=== PATIENT | male | born 1960 | race Caucasian/White ===

== ENCOUNTER 2017-09-11 08:49 | Day surgery (SDC) | payer BC ==
[2017-09-03 16:37] VITALS: BMI 32.3
[~2017-09-11 08:49] MED LIST: DEXAMETHASONE SOD PHOSPHATE 10 MG/ML 1 ML VIAL IV ONE; HEPARIN SODIUM,PORCINE 5,000 UNIT/ML 1 ML VIAL SQ ONE; HYDROmorphone 0.5 MG/0.5 ML SYRINGE IVP PRN; LACTATED RINGERS 1,000 ML IV SCH; MIDAZOLAM 2 MG/2 ML VIAL IV PRN; ONDANSETRON 4 MG/2 ML VIAL IVP ONE; SCOPOLAMINE 1.5MG/72HR PATCH TRANSDERM ONE; ceFAZolin IN SWFI 2 GM/20 ML SYRINGE IVP ONE
--- NOTE | 2017-09-11 09:11 | P.GSHP ---
History of Present Illness H&P Date: 09/11/17 Chief Complaint: Symptomatic cholelithiasis 56 yrs old male S/P Rubin procedure for perforated sigmoid diverticulitis. Doing well. OStomy functioning well. Incision has healed. He presents to discuss about incidental findings of gallstones ROS Additionally reports: Constitutional: No fever, chills or rigors. No weight loss or loss of appetite. HEENT: No difficulty with hearing, vision and swallowing. Lymphatic: No axillary, inguinal and cervical swellings. Endocrine: No thyroid disorders. Denies history of diabetes. Respiratory: No chest pain, shortness of breath, and cough. No hemoptysis. Cardiovascular: No palpitations, irregular HR Gastrointestinal: Denies heartburn. No change in bowel habits. No nausea or vomiting. Genitourinary: No increase in urinary frequency or urgency. No hematuria. Musculoskeletal: No back pain, joint stiffness or pain. Neurologic: No history of seizure disorder and headaches. Psychiatric: Denies depression or anxiety . No suicidal ideation. Hematologic: Denies any abnormal mucosal bleeding or easy bruising. Physical Exam Patient is a 56-year-old male. Constitutional: General Appearance: healthy-appearing, well-nourished, and well- developed. Level of Distress: NAD. Ambulation: ambulating normally. Psychiatric: Insight: good judgement. Mental Status: normal mood and affect and active and alert. Orientation: to time, place, and person. Memory: recent memory normal and remote memory normal. Head: Head: normocephalic and atraumatic. Cardiovascular: Heart Auscultation: normal S1 and S2 and RRR. Abdomen: Bowel Sounds: normal. Inspection and Palpation: no tenderness, guarding , masses, or rebound tenderness and soft and non-distended; Ostomy is pink and productive. Hernia: none palpable. Musculoskeletal:: Motor Strength and Tone: normal and normal tone. Joints, Bones , and Muscles: normal movement of all extremities. Extremities: no cyanosis or edema. Neurologic: Gait and Station: normal gait and station. Cranial Nerves: grossly intact. Skin: Inspection and palpation: no rash or lesions. Assessment / Plan 1. Cholelithiasis 2. Informed consent obtained from the patient after explaining the risks, benefits and potential complications of laparoscopic cholecystectomy including bleeding, infection, DVT , inadvertent bile duct injury and possibility of converting to open 3. Patient demonstrated understanding of the procedure and agreed to undergo lap endy possible open 4. Expected post op course discussed including no heavy lifting >10 lbs for 6 weeks post surgery 5. Colostomy reversal will be performed at a different date. Preop orders: 1. Ancef 2 gm IVPB x1 2. Bilateral lower extremity SCDs 3. Heparin 5000 Units SQ injection x1 1. Diverticulitis of sigmoid colon K57.32: Diverticulitis of large intestine without perforation or abscess without bleeding 2. Essential hypertension I10: Essential (primary) hypertension HIGH BLOOD PRESSURE: CARE INSTRUCTIONS LEARNING ABOUT HIGH BLOOD PRESSURE 3. Generalized anxiety disorder F41.1: Generalized anxiety disorder ANXIETY DISORDER: CARE INSTRUCTIONS 4. Body mass index 30+ - obesity Z68.39: Body mass index (BMI) 39.0-39.9, adult 5. Cholelithiasis without obstruction K80.20: Calculus of gallbladder without cholecystitis without obstruction Past Medical History Past Medical History: Hyperlipidemia, Hypertension, Sleep Apnea/CPAP/BIPAP Additional Past Medical History / Comment(s): gallstones, hs migraines, colostomy, IBS, diverticulitis, History of Any Multi-Drug Resistant Organisms: None Reported Past Surgical History: Bowel Resection, Hernia Repair Additional Past Surgical History / Comment(s): bowel resection with colostomy for "ruptured instestine", Past Anesthesia/Blood Transfusion Reactions: No Reported Reaction Smoking Status: Former smoker - Past Family History Father Family Medical History: Congestive Heart Failure (CHF) Mother Family Medical History: Cancer Medications and Allergies Home Medications Medication Instructions Recorded Confirmed Type ALPRAZolam [Xanax] 0.25 mg PO TID PRN 06/20/17 09/11/17 History Aspirin [Adult Low Dose Aspirin EC] 81 mg PO DAILY 06/20/17 09/03/17 History Citalopram Hydrobromide [CeleXA] 40 mg PO DAILY 06/20/17 09/03/17 History Ezetimibe/Simvastatin [Vytorin 1 tab PO DAILY 06/20/17 09/03/17 History 10-40 mg Tablet] Fenofibrate Nanocrystallized 145 mg PO DAILY 06/20/17 09/03/17 History [Tricor] amLODIPine [Norvasc] 5 mg PO DAILY #30 tab 06/26/17 09/03/17 Rx Allergies Allergy/AdvReac Type Severity Reaction Status Date / Time No Known Allergies Allergy Verified 09/03/17 11:33 Assessment and Plan (1) Cholelithiasis Current Visit: No Status: Acute Code(s): K80.20 - CALCULUS OF GALLBLADDER W/ O CHOLECYSTITIS W/O OBSTRUCTION SNOMED Code(s): 222783650 (2) Hypertension Current Visit: No Status: Acute Code(s): I10 - ESSENTIAL (PRIMARY) HYPERTENSION SNOMED Code(s): 42730153 (3) Obesity (BMI 30.0-34.9) Current Visit: No Status: Acute Code(s): E66.9 - OBESITY, UNSPECIFIED SNOMED Code(s): 270466598 (4) Sleep apnea Current Visit: No Status: Acute Code(s): G47.30 - SLEEP APNEA, UNSPECIFIED SNOMED Code(s): 92792913
[2017-09-11] MEDS ORDERED: ROCURONIUM BROMIDE 10 MG/ML 10 ML VIAL IV ONE (09:43)
[2017-09-11] MEDS ORDERED: GLYCOPYRROLATE 0.2 MG/ML 2 ML VIAL ONE (09:43)
[2017-09-11] MEDS ORDERED: NEOSTIGMINE 1 MG/ML 10 ML VIAL ONE (09:43)
[2017-09-11] MEDS ORDERED: LIDOCAINE 1% INJ 10MG/ML (20 ML MDV) ONE (09:43)
[2017-09-11] MEDS ORDERED: SUCCINYLCHOLINE CHLORIDE 100 MG/5 ML SYR IV ONE (09:43)
[2017-09-11] MEDS ORDERED: PROPOFOL 10 MG/ML 20 ML VIAL IV ONE (09:43)
[2017-09-11] MEDS ORDERED: LABETALOL 5 MG/ML VIAL MDV ONE (09:43)
[2017-09-11] MEDS ORDERED: fentaNYL (PF) 50 MCG/ML 2 ML AMP ONE (09:43)
[2017-09-11] MEDS ORDERED: MIDAZOLAM 2 MG/2 ML VIAL ONE (09:43)
[2017-09-11] MEDS ORDERED: KETOROLAC 30 MG/ML 1 ML VIAL ONE (09:43)
[2017-09-11] MEDS ORDERED: hydrALAZINE HCL 20 MG/ML 1 ML VIAL ONE (09:43)
[2017-09-11] MEDS ORDERED: BUPIVACAINE (PF) 0.25% 30 ML VIAL SQ ONE ×2 (10:12→10:46)
[2017-09-11] MEDS ORDERED: LACTATED RINGERS 1,000 ML IV ONE (10:54)
[2017-09-11 11:11] VITALS: TEMP 97.2
[2017-09-11 11:27] VITALS: RESP 18
[2017-09-11 12:24] VITALS: BP 147/72; PULSE 69
--- NOTE | 2017-09-11 13:34 | P.OP ---
Date of Procedure: 09/11/17 Preoperative Diagnosis: Calculus cholecystitis Status post Romaine procedure for perforated sigmoid diverticulitis Prior history of ventral hernia repair Postoperative Diagnosis: Same Procedure(s) Performed: Laparoscopic cholecystectomy Anesthesia: NICHOLASA Toll Line Mechanic #1: Anat Laird Estimated Blood Loss (ml): 5 Pathology: other Condition: stable Disposition: PACU Indications for Procedure: 56 years old male underwent Romaine procedure by Dr. Reyes for perforated sigmoid diverticulitis. He also has gallstones and presents today for laparoscopic cholecystectomy Description of Procedure: The patient was brought to the operating room and placed in supine position with both arms out. General anesthesia with endotracheal intubation was performed as per anesthesia team. Chlorhexidine was used to prep the abdomen followed by application of sterile drapes. A timeout was performed to verify correct patient and correct procedure. Patient was confirmed to receive perioperative IV antibiotics , heparin 5000 units subcutaneous injection and bilateral SCDs were placed. The ostomy bag was removed and area around it was prepped. A new ostomy appliance was applied and chloraprep was used to prep the abdomen wall as well as ostomy bag A 5 mm skin incision was made below the left costal margin at the anterior axillary line. A Veress needle was inserted and pneumoperitoneum was established to a pressure of 15 mmHg. A 5 mm Optiview trocar was loaded on a 5 mm 30 laparoscope and the peritoneal cavity was entered under direct vision using the Optiview technique. Additional 5 mm trocar was placed in the supraumbilical location and two 5 mm trocars along the right subcostal margin. The left 5 mm trocar was upsized to 10mm. The patient was placed in reverse Trendelenburg with right side up. Small bowel adhesions along the lower midline. The ostomy is identified in the left lower abdomen. The fundus of the gallbladder was grasped with an atraumatic grasper and was retracted over the dome of the liver. The infundibulum was grasped with an atraumatic grasper and retracted towards the pelvis to expose the Calot's triangle. Lateral and medial peritoneal attachment of the gallbladder bladder was dissected. Circumferential dissection was carried out around the cystic artery and the cystic duct to obtain adequate length for clip application. All the surrounding fibrofatty tissue were removed. Critical view was obtained with cystic duct and cystic artery as the only two structures entering the gallbladder. Two clips were applied on the patient's side and one on the specimen side on the cystic duct first followed by the cystic artery. Endoshears were used to divide the cystic duct and the cystic artery. The gallbladder was taken off the liver bed using a L-hook. It was placed in an endocatch specimen bag and removed through the 10mm port. The gallbladder was passed off as a specimen. The abdominal cavity was inspected. The clips on the cystic duct and cystic artery stump were intact and no bleeding noted from the liver bed. All the trocar sites were examined and no evidence of bleeding. The 10mm port site was closed with two transfascial sutures of 0 Vicryl using a Lavelle Ander device. The pneumoperitoneum was evacuated and all the trocars were removed. Local anesthetic was infiltrated along the trocar sites and incisions were closed using 4-0 Monocryl followed by application of Dermabond skin glue. The sponge, instrument and needle count were correct x2. Patient was extubated and taken to post anesthesia care unit in stable condition.
== END 2017-09-11 12:46 | disposition home or self-care (01) ==
LOC: OR 08:49
PROVIDERS: ATTEND Surgery
DX: K81.1 Chronic cholecystitis (principal); K66.0 Peritoneal adhesions (postprocedural) (postinfection); F41.1 Generalized anxiety disorder; I10 Essential (primary) hypertension; E78.5 Hyperlipidemia, unspecified; K58.9 Irritable bowel syndrome, unspecified; E66.9 Obesity, unspecified; Z68.39 Body mass index [BMI] 39.0-39.9, adult; G47.33 Obstructive sleep apnea (adult) (pediatric); Z87.19 Personal history of other diseases of the digestive system; Z93.3 Colostomy status; Z98.890 Other specified postprocedural states; Z79.1 Long term (current) use of non-steroidal anti-inflammatories (NSAID); Z79.82 Long term (current) use of aspirin; Z79.899 Other long term (current) drug therapy; Z87.891 Personal history of nicotine dependence
CPT/HCPCS: 88304; 47562; J2250; J0360; J1644; J1100; J2710; J0690; J2405; J2001; J3010; J1885; J0330; J2704

== ENCOUNTER 2023-11-02 04:13 | Emergency (ER) | payer BC ==
--- NOTE | 2023-11-02 04:47 | ED ---
General Adult HPI - General Source: patient Mode of arrival: ambulatory Limitations: no limitations <Abdiel Silva - Last Filed: 11/02/23 06:45> <Artie Landry - Last Filed: 11/02/23 08:13> - General Chief complaint: Abdominal Pain Stated complaint: abd pain-possible kidney stone Time Seen by Provider: 11/02/23 04:22 - History of Present Illness Initial comments: Dictation was produced using mokono dictation software. please excuse any grammatical, word or spelling errors. Chief Complaint: 63-year-old male with groin pain History of Present Illness: Patient 63-year-old male presents to the emergency department with groin pain. States that he was at [facility] emergency department 4 days ago diagnosed with a 10 mm kidney stone. Patient has been having tolerable symptoms at home until last night when he had a sharp pain in his right groin. States that the pain eased up after he took some tramadol. Patient is any fever. Denies any associated nausea. The ROS documented in this emergency department record has been reviewed and confirmed by me. Those systems with pertinent positive or negative responses have been documented in the HPI. All other systems are other negative and/or noncontributory. (Abdiel Silva) - Related Data Home Medications Medication Instructions Recorded Confirmed ALPRAZolam [Xanax] 0.25 mg PO TID PRN 06/20/17 09/11/17 Aspirin [Adult Low Dose Aspirin EC] 81 mg PO DAILY 06/20/17 09/03/17 Citalopram Hydrobromide [CeleXA] 40 mg PO DAILY 06/20/17 09/03/17 Ezetimibe/Simvastatin [Vytorin 1 tab PO DAILY 06/20/17 09/03/17 10-40 mg Tablet] Fenofibrate Nanocrystallized 145 mg PO DAILY 06/20/17 09/03/17 [Tricor] Previous Rx's Medication Instructions Recorded amLODIPine [Norvasc] 5 mg PO DAILY #30 tab 06/26/17 Docusate [Colace] 100 mg PO BID #30 capsule 09/11/17 Hydrocodone/Acetaminophen [[place] 1 each PO Q6HR PRN #10 tab 09/11/17 5-325] HYDROcodone/APAP 5-325MG [[place] 1 tab PO Q6HR PRN #12 tab 11/02/23 5-325] Ibuprofen [Motrin] 600 mg PO Q8HR PRN #24 tab 11/02/23 Tamsulosin [Flomax] 0.4 mg PO DAILY #7 cap 11/02/23 Allergies Allergy/AdvReac Type Severity Reaction Status Date / Time No Known Allergies Allergy Verified 09/03/17 11:33 Review of Systems ROS Other: All systems not noted in ROS Statement are negative. <Abdiel Silva - Last Filed: 11/02/23 06:45> ROS Other: All systems not noted in ROS Statement are negative. <Artie Landry - Last Filed: 11/02/23 08:13> ROS Statement: Those systems with pertinent positive or pertinent negative responses have been documented in the HPI. Past Medical History Past Medical History: Hyperlipidemia, Hypertension, Sleep Apnea/CPAP/BIPAP Additional Past Medical History / Comment(s): gallstones, hs migraines, colostomy, IBS, diverticulitis, History of Any Multi-Drug Resistant Organisms: None Reported Past Surgical History: Bowel Resection, Hernia Repair Additional Past Surgical History / Comment(s): bowel resection with colostomy for "ruptured instestine", Past Anesthesia/Blood Transfusion Reactions: No Reported Reaction Past Psychological History: Anxiety Past Alcohol Use History: None Reported Past Drug Use History: None Reported - Past Family History Father Family Medical History: Congestive Heart Failure (CHF) Mother Family Medical History: Cancer <Abdiel Silva - Last Filed: 11/02/23 06:45> General Exam Limitations: no limitations <Abdiel Silva - Last Filed: 11/02/23 06:45> - General Exam Comments Initial Comments: PHYSICAL EXAM: General Impression: Alert and oriented x3, not in acute distress HEENT: Normocephalic atraumatic, extra-ocular movements intact, pupils equal and reactive to light bilaterally, mucous membranes moist. Cardiovascular: Heart regular rate and rhythm Chest: Able to complete full sentences, no retractions, no tachypnea Abdomen: abdomen soft, non-tender, non-distended, no organomegaly Musculoskeletal: Pulses present and equal in all extremities, no peripheral edema Motor: no focal deficits noted Neurological: CN II-XII grossly intact, no focal motor or sensory deficits noted Skin: Intact with no visualized rashes Psych: Normal affect and mood (Abdiel Silva) Course Vital Signs 11/02/23 11/02/23 04:16 08:00 Temperature 98.2 F 97.4 F L Pulse Rate 78 64 Respiratory 20 16 Rate Blood Pressure 162/75 124/78 O2 Sat by Pulse 95 96 Oximetry Medical Decision Making - Lab Data Result diagrams: 11/02/23 04:30 11/02/23 04:30 <Abdiel Silva - Last Filed: 11/02/23 06:45> - Lab Data Result diagrams: 11/02/23 04:30 11/02/23 04:30 <Artie Landry - Last Filed: 11/02/23 08:13> - Medical Decision Making Was pt. sent in by a medical professional or institution (, PA, STREETCAR STARTER, urgent care, hospital, or care home...) When possible be specific @ -No Did you speak to anyone other than the patient for history (EMS, parent, family, police, friend...)? What history was obtained from this source @ -No Did you review nursing and triage notes (agree or disagree)? Why? @ -I reviewed and agree with nursing and triage notes Were old charts reviewed (outside hosp., previous admission, EMS record, old EKG, old radiological studies, urgent care reports/EKG's, care home records)? Report findings @ -No old charts were reviewed Differential Diagnosis (chest pain, altered mental status, abdominal pain women, abdominal pain men, vaginal bleeding, musculoskeletal, weakness, fever, dyspne a, syncope, headache, dizziness, GI bleed, back pain, seizure, CVA, palpatations, mental health)? @ -Differential Abdominal Pain Men: Appendicitis, cholecystitis, diverticulosis, ischemic bowel, pancreatitis, hepatitis, UTI, gastroenteritis, AAA, incarcerated hernia, bowel obstruction, constipation, inflammatory bowel, hepatitis, peptic ulcer disease, splenic infarction, perforated viscus, testicular torsion, this is not meant to be an all-inclusive list EKG interpreted by me (3pts min.). @ -None done X-rays interpreted by me (1pt min.). @ -None done CT interpreted by me (1pt min.). @ -None done U/S interpreted by me (1pt. min.). @ - What testing was considered but not performed or refused? (CT, X-rays, U/S, labs)? Why? @ -None What meds were considered but not given or refused? Why? @ -None Did you discuss the management of the patient with other professionals (professionals i.e. DrAna Paula, PA, STREETCAR STARTER, lab, RT, psych nurse, social group worker, dispatcher relay, teacher, air intelligence officer, rn field case manager)? Give summary @ -No Was smoking cessation discussed for >3mins.? @ -No Was critical care preformed (if so, how long)? @ -No Were there social determinants of health that impacted care today? How? ( Homelessness, low income, unemployed, alcoholism, drug addiction, transportation, low edu. Level, literacy, decrease access to med. care, custodial, rehab)? @ -No Was there de-escalation of care discussed even if they declined (Discuss DNR or withdrawal of care, Hospice)? DNR status @ -No What co-morbidities impacted this encounter? (DM, HTN, Smoking, COPD, CAD, Cancer, CVA, ARF, Chemo, Hep., AIDS, mental health diagnosis, sleep apnea, morbid obesity)? @ -None Was patient admitted / discharged? Hospital course, mention meds given and route, prescriptions, significant lab abnormalities, going to OR and other pertinent info. @ -63-year-old male with alleged head symptomatic nephrolithiasis. States that he was diagnosed with this 4 days ago after being symptomatic for approximately 4 days. Vital signs stable. Patient well-appearing at the bedside. Patient after several minutes did request pain medications. X-ray inconclusive on possible stone in the right urinary system. Pending ultrasound. Labs are unremarkable. Patient care signed out to Dr. Landry at 7:00 AM Undiagnosed new problem with uncertain prognosis? @ -No Drug Therapy requiring intensive monitoring for toxicity (Heparin, Nitro, Insulin, Cardizem)? @ -No Were any procedures done? @ -No Diagnosis/symptom? Acute, or Chronic, or Acute on Chronic? Uncomplicated (without systemic symptoms) or Complicated (systemic symptoms)? @ -Symptomatic nephrolithiasis (Abdiel Silva) I did discuss the case with the physician covering at [facility] who states that this was a 12 meters stone in the proximal right ureter. X-ray and ultrasound had been ordered by the previous physician with ultrasound negative for hydronephrosis, there is a jet present on the right. Patient unlikely to pass the stone without urology intervention. He is reevaluated and resting comfortably. He is stable for discharge at this time with urology follow-up. (Artie Landry) - Lab Data Lab Results 11/02/23 11/02/23 11/02/23 Range/Units 04:30 04:30 04:30 WBC 6.6 (3.8-10.6) k/uL RBC 4.66 (4.30-5.90) m/uL Hgb 14.8 (13.0-17.5) gm/dL Hct 43.3 (39.0-53.0) % MCV 92.8 (80.0-100.0) fL MCH 31.9 (25.0-35.0) pg MCHC 34.3 (31.0-37.0) g/dL RDW 13.0 (11.5-15.5) % Plt Count 219 (150-450) k/uL MPV 8.4 Neutrophils % 67 % Lymphocytes % 23 % Monocytes % 5 % Eosinophils % 3 % Basophils % 1 % Neutrophils # 4.5 (1.3-7.7) k/uL Lymphocytes # 1.5 (1.0-4.8) k/uL Monocytes # 0.4 (0-1.0) k/uL Eosinophils # 0.2 (0-0.7) k/uL Basophils # 0.1 (0-0.2) k/uL Sodium 139 (137-145) mmol/L Potassium 4.1 (3.5-5.1) mmol/L Chloride 109 H (98-107) mmol/L Carbon Dioxide 23 (22-30) mmol/L Anion Gap 7 mmol/L BUN 20 (9-20) mg/dL Creatinine 1.02 (0.66-1.25) mg/dL Est GFR (CKD-EPI)AfAm >90 (>60 ml/min/1.73 sqM) Est GFR (CKD-EPI)NonAf 79 (>60 ml/min/1.73 sqM) Glucose 112 H (74-99) mg/dL Calcium 9.6 (8.4-10.2) mg/dL Total Bilirubin 0.6 (0.2-1.3) mg/dL AST 30 (17-59) U/L ALT 59 H (4-49) U/L Alkaline Phosphatase 38 (38-126) U/L Total Protein 6.6 (6.3-8.2) g/dL Albumin 4.2 (3.5-5.0) g/dL Urine Color Light Yellow Urine Appearance Cloudy (Clear) Urine pH 5.5 (5.0-8.0) Ur Specific Saxon 1.018 (1.001-1.035) Urine Protein Negative (Negative) Urine Glucose (UA) Negative (Negative) Urine Ketones Negative (Negative) Urine Blood Large H (Negative) Urine Nitrite Negative (Negative) Urine Bilirubin Negative (Negative) Urine Urobilinogen <2.0 (<2.0) mg/dL Ur Leukocyte Esterase Negative (Negative) Urine RBC >182 H (0-5) /hpf Urine WBC 18 H (0-5) /hpf Ur Squamous Epith Cells <1 (0-4) /hpf Calcium Oxalate Crystal Few H (None) /hpf Urine Bacteria Rare H (None) /hpf Urine Mucus Rare H (None) /hpf Disposition <Abdiel Silva D - Last Filed: 11/02/23 06:45> Is patient prescribed a controlled substance at d/c from ED?: No Time of Disposition: 08:07 <Artie Landry - Last Filed: 11/02/23 08:13> Clinical Impression: Kidney stone Disposition: HOME SELF-CARE Condition: Good Instructions (If sedation given, give patient instructions): Kidney Stones (ED) Prescriptions: Tamsulosin [Flomax] 0.4 mg PO DAILY #7 cap Ibuprofen [Motrin] 600 mg PO Q8HR PRN #24 tab PRN Reason: Pain HYDROcodone/APAP 5-325MG [[place] 5-325] 1 tab PO Q6HR PRN #12 tab PRN Reason: Pain Referrals: Hay Lindsey MD [STAFF PHYSICIAN] - 1-2 days
[2023-11-02 04:50] LABS: Basophils # (A) 0.1 k/uL (0-0.2); Basophils % (A) 1 %; Eosinophils # (A) 0.2 k/uL (0-0.7); Eosinophils % (A) 3 %; HCT 43.3 % (39.0-53.0); HGB 14.8 gm/dL (13.0-17.5); Lymphocytes # (A) 1.5 k/uL (1.0-4.8); Lymphocytes % (A) 23 %; MCH 31.9 pg (25.0-35.0); MCHC 34.3 g/dL (31.0-37.0); MCV 92.8 fL (80.0-100.0); Mean Platelet Volume 8.4; Monocytes # (A) 0.4 k/uL (0-1.0); Monocytes % (A) 5 %; Neutrophils # (A) 4.5 k/uL (1.3-7.7); Neutrophils % (A) 67 %; Platelet Count 219 k/uL (150-450); RBC 4.66 m/uL (4.30-5.90); WBC 6.6 k/uL (3.8-10.6)
[2023-11-02 04:59] LABS: AST 30 U/L (17-59); African American GFR (CKD) >90 (>60 ml/min/1.73 sqM); Albumin 4.2 g/dL (3.5-5.0); Blood Urea Nitrogen 20 mg/dL (9-20); Carbon Dioxide 23 mmol/L (22-30); Glucose 112 mg/dL (74-99); Non-African American GFR(CKD) 79 (>60 ml/min/1.73 sqM); Total Bilirubin 0.6 mg/dL (0.2-1.3); Total Protein 6.6 g/dL (6.3-8.2)
[2023-11-02 05:02] LABS: Appearance,Urine Cloudy (Clear); Bacteria,Urine Rare /hpf; Bilirubin,Urine Negative (Negative); Blood,Urine Large (Negative); Calcium Oxalate Crystals,Urine Few /hpf; Color,Urine Light Yellow; Glucose,Urine (UA) Negative (Negative); Ketones,Urine Negative (Negative); Leukocyte Esterase,Urine Negative (Negative); Mucus,Urine Rare /hpf; Nitrite,Urine Negative (Negative); PH, Urine 5.5 (5.0-8.0); Protein,Urine Negative (Negative); RBC,Urine >182 /hpf (0-5); Specific Gravity,Urine 1.018 (1.001-1.035); Squamous Epithelial Cell,Urine <1 /hpf (0-4); Urobilinogen,Urine <2.0 mg/dL (<2.0); WBC,Urine 18 /hpf (0-5)
[2023-11-02 05:14] LABS: ALT 59 U/L (4-49); Alkaline Phosphatase 38 U/L (38-126); Anion Gap 7 mmol/L; Calcium 9.6 mg/dL (8.4-10.2); Chloride 109 mmol/L (98-107); Sodium 139 mmol/L (137-145)
[2023-11-02 06:17] LABS: Potassium 4.1 mmol/L (3.5-5.1)
--- NOTE | 2023-11-02 06:43 | XR ---
EXAMINATION TYPE: XR KUB DATE OF EXAM: 11/02/2023 6:35 AM CLINICAL HISTORY: Kidney stone. Intense pain in abdomen. TECHNIQUE: Two Upright KUB images of the abdomen are obtained. COMPARISON: CT June 20, 2017. FINDINGS: There is 9 mm calcification in the right pelvis redemonstrated consistent with phlebolith. No definite nephrolithiasis. Overall nonobstructive bowel gas pattern. Cholecystectomy clips are now seen. Lung bases are clear. No free air. Moderate to severe narrowing of both hip joints is present. IMPRESSION: There is 9 mm calcification in the right pelvis correlates with phlebolith on old CT. No definite nephrolithiasis on x-ray.
[2023-11-02] MEDS: KETOROLAC 15 MG/ML 1 ML VIAL IVP STA (06:45)
[2023-11-02] MEDS: SODIUM CHLORIDE 0.9% 1,000 ML IV STA (06:45)
--- NOTE | 2023-11-02 07:45 | US ---
EXAMINATION TYPE: US kidneys/renal and bladder DATE OF EXAM: 11/02/2023 COMPARISON: NONE CLINICAL INDICATION: Male, 63 years old with history of flank pain; outside imaging on Thursday showi ng 12mm Rt kidney stone, now has RLQ pain EXAM MEASUREMENTS: Right Kidney: 13.8x5.5x6.5 cm Left Kidney: 12.1x5.9x4.6 cm Right Kidney: No hydronephrosis or masses seen Left Kidney: No hydronephrosis or masses seen Bladder: wnl Bilateral Jets seen: left jet not seen There is no evidence for hydronephrosis at this point in time. No nephrolithiasis is seen. No sena s are identified. The urinary bladder is anechoic. Right ureteral jet is seen. no stones noted, exam limited by body habitus and attenuation from the liver IMPRESSION: No significant abnormality identified although the left sided ureteral jet is not clearly visualized.
[2023-11-02 08:31] VITALS: BP 124/78; PULSE 64; RESP 16; TEMP 97.4
== END 2023-11-02 08:25 | disposition home or self-care (01) ==
LOC: EC 04:13
DX: N20.0 Calculus of kidney (principal); I10 Essential (primary) hypertension; G47.30 Sleep apnea, unspecified; F41.9 Anxiety disorder, unspecified; Z79.899 Other long term (current) drug therapy; Z79.82 Long term (current) use of aspirin
CPT/HCPCS: 36415; 80053; 85025; 81001; 74018; 76770; 99284; 96374; 96361; J1885

== ENCOUNTER 2023-11-09 12:37 | Day surgery (SDC) | payer BC ==
[~2023-11-09 12:37] MED LIST changes: -DEXAMETHASONE SOD PHOSPHATE 10 MG/ML 1 ML VIAL IV ONE; -HEPARIN SODIUM,PORCINE 5,000 UNIT/ML 1 ML VIAL SQ ONE; -LACTATED RINGERS 1,000 ML IV SCH; +LIDOCAINE 1% (10MG/ML) FOR IV START INTRADERMA PRN; -ONDANSETRON 4 MG/2 ML VIAL IVP ONE; -SCOPOLAMINE 1.5MG/72HR PATCH TRANSDERM ONE; -ceFAZolin IN SWFI 2 GM/20 ML SYRINGE IVP ONE
[2023-11-09] MEDS: LACTATED RINGERS 1,000 ML IV SCH (13:39)
[2023-11-09] MEDS: DEXAMETHASONE SOD PHOSPHATE 4 MG/ML 1 ML VIAL IV ONE (13:39)
[2023-11-09] MEDS: ONDANSETRON 4 MG/2 ML VIAL IVP ONE (13:39)
--- NOTE | 2023-11-09 13:50 | XR ---
EXAMINATION TYPE: XR KUB DATE OF EXAM: 11/09/2023 Comparison: 11/02/2023 Clinical History: 63-year-old male Ureteral Stone N20.1 Findings: Cholecystectomy clips. Nonobstructive bowel gas pattern. Mild overall snowboarding. Redemonstration o f a 1.1 cm calcification in the right pelvis. Impression: Redemonstration of a 1.1 cm calcification in the right side of the pelvis. Distal right ureteral ston e is a consideration. A phlebolith is favored however.
--- NOTE | 2023-11-09 14:22 | P.HPIHPCON ---
History of Present Illness H&P Date: 11/09/23 Chief Complaint: Right ureteral stone This is a 63-year-old male with history of a 1 cm right-sided distal ureteral stone, he is symptomatic from his stone. Option of right-sided ureteroscopy versus ESWL was discussed with him. He agreed to proceed with a right-sided ureteroscopy with holmium laser, aware the risk which includes but not limited to bleeding, infection, injury to the ureter Consent for Procedure: I have explained the operation/procedure to the patient, including the risks, benefits, side effects, alternative therapies (including not receiving the proposed treatment or service), the likelihood of the patient achieving his/her goals, and potential recuperation problems for the procedure/sedation/analgesia, as well as any blood products, if indicated. I also explained to the patient the risks, benefits and side effects of the alternatives, as well as the risks related to not receiving the proposed procedure, care, treatment, or services. Past Medical History Past Medical History: COPD, Hyperlipidemia, Hypertension, Sleep Apnea/CPAP/BIPAP Additional Past Medical History / Comment(s): hx migraines-none recently, IBS, diverticulitis, recent dx. kidney stones, uses BIPAP History of Any Multi-Drug Resistant Organisms: None Reported Past Surgical History: Bowel Resection, Cholecystectomy, Hernia Repair Additional Past Surgical History / Comment(s): bowel resection with colostomy for "ruptured intestine", then reversal of colostomy Past Anesthesia/Blood Transfusion Reactions: No Reported Reaction Smoking Status: Former smoker - Past Family History Father Family Medical History: Congestive Heart Failure (CHF) Mother Family Medical History: Cancer Medications and Allergies Home Medications Medication Instructions Recorded Confirmed Type ALPRAZolam [Xanax] 0.25 mg PO TID PRN 06/20/17 11/09/23 History Aspirin [Adult Low Dose Aspirin EC] 81 mg PO DAILY 06/20/17 11/09/23 History Ezetimibe/Simvastatin [Vytorin 1 tab PO DAILY 06/20/17 11/09/23 History 10-40 mg Tablet] Fenofibrate Nanocrystallized 145 mg PO DAILY 06/20/17 11/09/23 History [Tricor] amLODIPine [Norvasc] 5 mg PO DAILY #30 tab 06/26/17 11/09/23 Rx Hydrocodone/Acetaminophen [Page 1 each PO Q6HR PRN #10 tab 09/11/17 11/09/23 Rx 5-325] Ibuprofen [Motrin] 600 mg PO Q8HR PRN #24 tab 11/02/23 11/09/23 Rx Tamsulosin [Flomax] 0.4 mg PO DAILY #7 cap 11/02/23 11/09/23 Rx Budesonide/Formoterol Fumarate 1 puff PO BID 11/04/23 11/09/23 History [Budesonide-Formoterol 80-4.5] Ketorolac [Toradol] 10 mg PO Q6HR PRN 11/04/23 11/09/23 History oxyCODONE HCL [oxyCODONE HCL (IR)] 5 mg PO Q6H PRN 11/04/23 11/09/23 History Allergies Allergy/AdvReac Type Severity Reaction Status Date / Time No Known Allergies Allergy Verified 11/09/23 13:18 Surgical - Exam Vital Signs Temp Pulse Resp BP Pulse Ox 97.4 F L 65 18 117/66 96 11/09/23 13:34 11/09/23 13:34 11/09/23 13:34 11/09/23 13:34 11/09/23 13:34 - General no distress, moderate pain - Eyes normal ocular movement, no pale - ENT normal nares, normal mucosa - Respiratory normal expansion, normal respiratory effort - Psychiatric oriented to time, oriented to person, oriented to place Assessment and Plan Assessment: OR for right-sided ureteroscopy, holmium laser lithotripsy, stone basketing and stent insertion
[2023-11-09] MEDS ORDERED: SUCCINYLCHOLINE CHLORIDE 200 MG/10 ML VIAL IV ONE (14:23)
[2023-11-09] MEDS ORDERED: GLYCOPYRROLATE 0.2 MG/ML 2 ML VIAL ONE (14:23)
[2023-11-09] MEDS ORDERED: LIDOCAINE 1% INJ 10MG/ML (20 ML MDV) ONE (14:23)
[2023-11-09] MEDS ORDERED: NEOSTIGMINE 1 MG/ML 10 ML VIAL ONE (14:23)
[2023-11-09] MEDS ORDERED: PROPOFOL 10 MG/ML 20 ML VIAL IV ONE (14:23)
[2023-11-09] MEDS ORDERED: PHENYLEPHRINE 10 MG/ML VIAL ONE (14:23)
[2023-11-09] MEDS ORDERED: MIDAZOLAM 2 MG/2 ML VIAL ONE (14:23)
[2023-11-09] MEDS ORDERED: fentaNYL (PF) 50 MCG/ML 2 ML AMP ONE (14:23)
[2023-11-09] MEDS ORDERED: ROCURONIUM 10 MG/ML (5 ML VIAL) IV ONE (14:23)
--- NOTE | 2023-11-09 15:30 | P.OP ---
Date of Procedure: 11/09/23 Preoperative Diagnosis: Right ureteral stone Postoperative Diagnosis: Same Procedure(s) Performed: Cystoscopy, right ureteroscopy, holmium laser lithotripsy, stone basketing and stent insertion Implants: 6 Dutch by 26 cm stent in the right ureter left on a string Anesthesia: KODI Surgeon: Wayne Alejandre Estimated Blood Loss (ml): 5 Pathology: other (right ureteral stone) Condition: stable Disposition: PACU Indications for Procedure: This is a 63-year-old male with history of a 1 cm right-sided distal ureteral stone, he is symptomatic from his stone. Option of right-sided ureteroscopy versus ESWL was discussed with him. He agreed to proceed with a right-sided ureteroscopy with holmium laser, aware the risk which includes but not limited to bleeding, infection, injury to the ureter Operative Findings: Right distal ureteral stone Description of Procedure: Patient brought to the operating room, general anesthesia was induced. He was prepped and draped in sterile fashion and placed in dorsolithotomy position. Cystoscopy fitted 21 Dutch sheath was inserted per urethra, cystoscopy was performed which showed no abnormality within the bladder. Of note patient did have an enlarged median lobe with intravesical extension, the prostate was occlusive. At this time attention was carried to the right ureteral orifice, the right ureteral orifice was edematous. At this time a semirigid ureteroscope was inserted per urethra and advanced up the right ureteral orifice, a stone was encountered in the distal ureter. Using the holmium laser the stone was fragmented, sizable stone fragments were removed using the stone basket. This time the ureteroscope was advanced all the way up to the proximal ureter which showed no additional stones, pullback ureteroscopy was performed showed no s izable fragments or injury to the kidney, there was some edema at the site of the stone. As ureteroscope was withdrawn, a sensor wire was advanced through. Next a ureteral stent was passed over the wire, the proximal curl was visualized on fluoroscopy and the distal curl was visualized using the cystoscope. The stent was left on a string and taped to the patient penis. Patient tolerated procedure was taken to recovery in stable condition. He will follow-up in 1 week for stent removal
[2023-11-09 15:48] VITALS: TEMP 97.2
[2023-11-09 16:53] VITALS: BP 122/75; PULSE 59; RESP 16
--- NOTE | 2023-11-09 17:58 | FL ---
EXAMINATION TYPE: FL guidance operating room DATE OF EXAM: 11/09/2023 Comparison: None Clinical History: 63-year-old male CYSTOSCOPY LITHO Findings: RT ureteral stone. RT ureteroscopy with lithotripsy and stent insertion. 1 image. 12 secs fluoro. DAP=1.[address] Alejandre Impression: Fluoroscopy for urology procedure as above.
== END 2023-11-09 16:40 | disposition home or self-care (01) ==
LOC: OR 12:37
PROVIDERS: ATTEND Urology
DX: N20.1 Calculus of ureter (principal); J44.9 Chronic obstructive pulmonary disease, unspecified; E78.5 Hyperlipidemia, unspecified; I10 Essential (primary) hypertension; G43.909 Migraine, unspecified, not intractable, without status migrainosus; G47.33 Obstructive sleep apnea (adult) (pediatric); F41.9 Anxiety disorder, unspecified; K58.9 Irritable bowel syndrome, unspecified; Z90.49 Acquired absence of other specified parts of digestive tract; Z87.891 Personal history of nicotine dependence; Z79.899 Other long term (current) drug therapy
CPT/HCPCS: 52356; 82365; 74018; C2625; C1769; J2250; J0330; J1100; J2710; J0690; J2405; J2001; J3010; J2704; J2371